=== PATIENT | male | born 1975 | race African-American/Black ===

== ENCOUNTER 2016-09-20 22:21 | Emergency (ER) | payer MEDICAID, SELFPAY ==
[~2016-09-20] VITALS: Ht 180.3 cm; Wt 77.5 kg
[2016-09-20] MEDS ORDERED: SODIUM CHLORIDE FLUSH 10ML SYR IVF ONE (23:30)
[2016-09-20] MEDS ORDERED: SODIUM CHLORIDE 0.9% 1,000ML IVBOLUS ONE (23:30)
[2016-09-20 23:55] LABS: BLOOD UREA NITROGEN 21 mg/dL (7-18)
[2016-09-21] LABS: ACETAMINOPHEN < 2 mcg/mL (10-30); ASPARTATE AMINO TRANSFERASE 23 U/L (15-37)
[2016-09-21 00:27] VITALS: BP 127/84
[2016-09-21] MEDS ORDERED: SODIUM CHLORIDE 0.9% 1,000ML IVBOLUS ONE (01:00)
== END 2016-09-21 07:06 | disposition home or self-care (01) ==
LOC: ED 09-21 02:00
DX: F15.20 Other stimulant dependence, uncomplicated (principal); N17.9 Acute kidney failure, unspecified; E86.0 Dehydration
CPT/HCPCS: 36415; 70450; 71010; 80053; 80307; 80329; 82140; 82550; 83605; 85025; 93005; 96360; 99285; J7030; G0480

== ENCOUNTER 2019-07-21 18:21 | Emergency (ER) | payer MEDICAID, OTHER ==
[~2019-07-21] VITALS: Ht 185.4 cm; Wt 80.3 kg
[2019-07-21] MEDS ORDERED: ZIPRASIDONE 20 MG INJ IM ONE ×2 (18:40→19:00)
[2019-07-21] MEDS ORDERED: LORazepam 2 MG/ML, 1ML ONE (18:40)
--- NOTE | 2019-07-21 18:52 | NUR ---
PT TO ROOM FROM TRIAGE, PT AGITATED. HIGH ON METH PER SON. DIFFICULT TO OBTAIN INFORMATION FROM PT OR SYMTPOMS AT THIS TIME. MD TO TRIAGE PRIOR TO RM TO ORDER MEDS, PT MEDICATED PER JUN. PT IN SECURE RM AT THIS TIME
[2019-07-21] MEDS ORDERED: LORazepam 2 MG/ML, 1ML IM ONE (19:00)
--- NOTE | 2019-07-21 19:03 | NUR ---
REPORT FROM CUATE KELLY. PT CURRENTLY SLEEPING IN NO ACUTE DISTRESS, EVEN AND UNLABORED RESPIRATIONS, SAFETY PRECAUTIONS IN PLACE. RADHA WYATT WILL RETURN TO PICK PT UP UPON DISCHARGE.
[2019-07-21] MEDS ORDERED: DIPH,PERTUSS(ACELL),TET VAC/PF 0.5 ML IM-VACC ONE ×2 (19:30→19:46)
--- NOTE | 2019-07-21 19:45 | NUR ---
EMT AT BEDSIDE FOR WOUND DRESSING.
[2019-07-21 19:50] LABS: BASOPHILS # (AUTO) 0.02 x10^3/uL (0-0.1); BASOPHILS % (AUTO) 0 % (0-1); EOSINOPHILS # (AUTO) 0.01 x10^3/uL (0-0.4); EOSINOPHILS % (AUTO) 0 % (1-7); LYMPHOCYTES # (AUTO) 1.46 x10^3/uL (1-3.4); LYMPHOCYTES % (AUTO) 21 % (22-44); MD NO; MEAN CORPUSCULAR HGB CONC 33.8 g/dL (33.2-36.2); MEAN CORPUSCULAR VOLUME 94.7 fL (81-97); MEAN PLATELET VOLUME 6.7 fL (7.4-10.4); MONOCYTES # (AUTO) 0.26 x10^3/uL (0.2-0.8); MONOCYTES % (AUTO) 4 % (2-9); NEUTROPHILS # (AUTO) 5.29 x10^3/uL (1.8-6.8); NEUTROPHILS % (AUTO) 75 % (42-75); PLATELET COUNT 259 x10^3/uL (130-400); RED BLOOD COUNT 3.98 x10^6/uL (4.38-5.82); RED CELL DISTRIBUTION WIDTH 13.7 % (9.4-14.8)
[2019-07-21 19:56] LABS: ALBUMIN 4.3 g/dL (3.4-5.0); ANION GAP 13 mmol/L (5-15); CALCIUM 9.4 mg/dL (8.5-10.1); CHLORIDE 102 mmol/L (98-107); SALICYLATE LEVEL 4.5 mg/dL (2.8-20.0)
[2019-07-21 20:07] LABS: ALANINE AMINOTRANSFERASE 31 U/L (12-78); ALKALINE PHOSPHATASE 58 U/L (45-117); BILIRUBIN,TOTAL 0.6 mg/dL (0.2-1.0); CREATININE 1.17 mg/dL (0.7-1.3); TOTAL PROTEIN 8.5 g/dL (6.4-8.2)
--- NOTE | 2019-07-21 20:14 | NUR ---
RADHA WYATT [phone] PHONE NUMBER.
[2019-07-21 20:15] LABS: MICROSCOPIC INDICATED
[2019-07-21 20:24] LABS: AMPHETAMINE SCREEN, URINE Positive (Negative); BARBITURATE SCREEN, URINE Negative (Negative); BENZODIAZEPINE SCREEN, URINE Negative (Negative); CANNABINOID SCREEN, URINE Negative (Negative); COCAINE SCREEN, URINE Negative (Negative); CULTURE INDICATED? NO; METHADONE SCREEN, URINE Negative (Negative); OPIATE SCREEN, URINE Negative (Negative)
--- NOTE | 2019-07-21 20:50 | NUR ---
SLEEPING IN NO ACUTE DISTRESS, RESPIRATIONS EVEN AND UNLABORED. SAFETY PRECAUTIONS IN PLACE.
--- NOTE | 2019-07-21 21:44 | NUR ---
SLEEPING EASILY AROUSABLE TO VERBAL COMMAND. VSS. SAFETY PRECAUTIONS IN PLACE.
--- NOTE | 2019-07-21 22:36 | NUR ---
PT CONTINUES TO SLEEP, INTERMITTENTLY MUMBLING, RESPIRATIONS EVEN AND UNLABORED. VSS. SAFETY FALL PRECAUTIONS IN PLACE.
[2019-07-21 23:26] VITALS: BP 122/85
--- NOTE | 2019-07-21 23:27 | NUR ---
PT WAS ABLE TO WAKE UP TO VERBAL COMMAND, PT IS AWARE HE IS AT THE HOSPITAL. VSS. SAFETY PRECAUTIONS IN PLACE.
--- NOTE | 2019-07-22 00:09 | NUR ---
SON HERE TO GIVE PT RIDE HOME.
== END 2019-07-22 00:11 | disposition home or self-care (01) ==
LOC: ED 19:11
DX: S91.311A Laceration without foreign body, right foot, initial encounter (principal); F10.159 Alcohol abuse with alcohol-induced psychotic disorder, unspecified; F15.10 Other stimulant abuse, uncomplicated; F12.10 Cannabis abuse, uncomplicated; R00.0 Tachycardia, unspecified; W45.8XXA Other foreign body or object entering through skin, initial encounter; Y93.89 Activity, other specified; Y92.89 Other specified places as the place of occurrence of the external cause; Y99.8 Other external cause status; Y90.0 Blood alcohol level of less than 20 mg/100 ml
CPT/HCPCS: 36415; 73620; 80053; 80307; 81001; 84439; 84443; 84481; 85025; 90471; 90715; 93005; 96372; 99285; J2060; J3486